=== PATIENT | male | born 1955 | race Caucasian/White ===

== ENCOUNTER → 2018-11-27 | Outpatient (CLI) | payer MEDICARE, OTHER ==
--- NOTE | 2018-11-28 08:38 | US ---
EXAMINATION TYPE: US prostate transrectal DATE OF EXAM: 11/27/2018 COMPARISON: NONE CLINICAL HISTORY: R97.2 Elevated PSA levels. This examination was performed using the transrectal probe. EXAM MEASUREMENTS: Gland Size: 4.7 X 2.8 X 4.6 Volume: 31.24 Predicted PSA: 3.75 Actual PSA (if available):5.5 No suspicious sonographic abnormality visualized . Prostate gland is minimally enlarged and mildly he terogenous. IMPRESSION: Mildly enlarged and heterogenous prostate gland without suspicious focal nodule seen son ographically. Predicted PSA = volume x 0.12 ng/ml Calculated Volume = 0.5236 x L x W x H
== END | disposition home or self-care (01) ==
LOC: RADUSWWP 08:04
PROVIDERS: ATTEND Family Medicine
DX: N40.0 Benign prostatic hyperplasia without lower urinary tract symptoms (principal)
CPT/HCPCS: 76872

== ENCOUNTER 2019-05-12 07:31 | Day surgery (SDC) | payer MEDICARE, OTHER ==
[2019-05-08 16:03] VITALS: BMI 23.6
[~2019-05-12 07:31] MED LIST: LACTATED RINGERS 1,000 ML IV SCH; LIDOCAINE 1% 20 ML VIAL (10MG/ML) FOR IV START INTRADERMA PRN
[2019-05-12 07:58] VITALS: TEMP 98.2
[2019-05-12] MEDS ORDERED: LIDOCAINE 1% INJ 10MG/ML (20 ML MDV) ONE (08:10)
[2019-05-12] MEDS ORDERED: PROPOFOL 10 MG/ML 20 ML VIAL IV ONE (08:10)
--- NOTE | 2019-05-12 08:38 | P.PCN ---
Date of Procedure: 05/12/19 Description of Procedure: BRIEF HISTORY: Patient is a 63-year-old pleasant male scheduled for an elective colonoscopy as a part of screening for malignant neoplasm colon. Last colonoscopy at the age of 52. Denies any change in bowel habits, abdominal pain, blood per rectum or family history of colon cancer. PROCEDURE PERFORMED: Colonoscopy with polypectomy. PREOPERATIVE DIAGNOSIS: And screening for malignant neoplasm of the colon, last colonoscopy approximately 10 years ago. ESTIMATED BLOOD LOSS: Minimal. IV sedation per Anesthesia. PROCEDURE: After informed consent was obtained, the patient, was brought into the endoscopy unit. IV sedation was administered by Anesthesia under continuous monitoring. Digital rectal examination was normal. Initially the Olympus CF-190 flexible video colonoscope was then inserted in the rectum, gradually advanced into the cecum without any difficulty. Careful examination was performed as the scope was gradually being withdrawn. Ileocecal valve and the appendiceal orifice were visualized and appeared normal. Prep was excellent. Mucosa of the cecum, ascending colon, transverse colon, descending colon, sigmoid colon, and rectum appeared normal. Diminutive 1 mm polyp in the ascending colon removed by cold forceps, may represent normal tissue. One diminutive 2 mm hepatic flexure polyp removed with cold forcep polypectomy. One diminutive 3 mm transverse colon polyp removed cold forcep polypectomy. A few scattered small diverticula noted in the sigmoid colon. Retroflexion was performed in the rectum and no lesions were seen. The patient tolerated the procedure well. IMPRESSION: 3 diminutive colon polyps removed with cold forcep polypectomy. Mild sigmoid diverticulosis. RECOMMENDATIONS: Findings of this examination were discussed with the patient and his . Okay to resume diet. Okay to resume medications. Await pathology from polypectomies. Anticipate repeat colonoscopy in 5 years for personal history of colon polyps pending pathology from polypectomies.
[2019-05-12 08:40] VITALS: RESP 16
[2019-05-12 08:55] VITALS: BP 137/75; PULSE 62
== END 2019-05-12 09:24 | disposition home or self-care (01) ==
LOC: ORWHC2ENDO 07:31
PROVIDERS: ATTEND Internal Medicine
DX: Z12.11 Encounter for screening for malignant neoplasm of colon (principal); D12.3 Benign neoplasm of transverse colon; K57.30 Diverticulosis of large intestine without perforation or abscess without bleeding; Z87.891 Personal history of nicotine dependence; Z96.21 Cochlear implant status; R19.7 Diarrhea, unspecified; Z79.899 Other long term (current) drug therapy; Z88.8 Allergy status to other drugs, medicaments and biological substances
CPT/HCPCS: 88305; 45380; J2001; J2704

== ENCOUNTER → 2020-11-17 | Outpatient (CLI) | payer MEDICARE, OTHER | END | disposition home or self-care (01) | LOC: LABWHC1 11:08 | PROVIDERS: ATTEND Urology | DX: R97.20 Elevated prostate specific antigen [PSA] (principal) | CPT/HCPCS: 36415; 84153 ==

== ENCOUNTER → 2021-03-28 | Outpatient (CLI) | payer MEDICARE, OTHER | END | disposition home or self-care (01) | LOC: LABPAT 14:05 | PROVIDERS: ATTEND Orthopaedic Surgery | DX: Z01.812 Encounter for preprocedural laboratory examination (principal) | CPT/HCPCS: 87070 ==

== ENCOUNTER → 2021-04-01 | Outpatient (CLI) | payer MEDICARE, OTHER | END | disposition home or self-care (01) | LOC: LABPAT 14:33 | PROVIDERS: ATTEND Orthopaedic Surgery | DX: Z01.812 Encounter for preprocedural laboratory examination (principal); M17.12 Unilateral primary osteoarthritis, left knee; Z22.322 Carrier or suspected carrier of Methicillin resistant Staphylococcus aureus | CPT/HCPCS: 86850; 86900; 86901 ==

== ENCOUNTER 2021-04-05 11:31 | Day surgery (SDC) | payer MEDICARE, OTHER ==
[2021-04-01 11:23] VITALS: BMI 25.4
--- NOTE | 2021-04-04 11:15 | HP ---
HISTORY AND PHYSICAL CHIEF COMPLAINT: Left hip pain. HISTORY OF PRESENT ILLNESS: The patient is a 65-year-old retired male who presents with progressive left hip pain for the past 20 years. He notes groin and thigh pain, worse with weightbearing activities. He has been limping. He notes night symptoms as well. He has been taking anti-inflammatories, without much relief. He notes it significantly limits his function and activities. PAST MEDICAL HISTORY: Significant for hypercholesterolemia, hypertension and diffuse idiopathic skeletal hyperostosis. PAST SURGICAL HISTORY: Negative. CURRENT MEDICATIONS: Amlodipine, Celebrex, Nexium, pravastatin, tizanidine. ALLERGIES: HE DENIES DRUG ALLERGIES. FAMILY HISTORY: Significant for cancer. SOCIAL HISTORY: Significant social alcohol use. REVIEW OF SYSTEMS: Sixteen-point review of systems is otherwise reviewed and is noncontributory. PHYSICAL EXAMINATION: On examination, the patient is approximately 5 feet 10 inches, 180 pounds of mesomorphic habitus. HEENT exam is nonfocal. Neck is supple. Passive motion of the left hip: Flexion 70 degrees, external rotation with hip flexed 60 degrees, internal rotation 20 degrees with pain. Clinically he has shortening of the left lower extremity compared to the right. He has a mildly antalgic gait pattern. His distal neurovascular exam appears intact in the left lower extremity. AP of the pelvis obtained in the office shows severe left hip osteoarthrosis with bone- on-bone changes. IMPRESSION: 1. Left hip severe osteoarthrosis. 2. History of diffuse idiopathic skeletal hyperostosis. RECOMMENDATIONS: I talked to the patient at length regarding his condition and treatment options. At this point he is quite symptomatic and limited because of pain related to his osteoarthrosis despite previous conservative measures. After thorough discussion, he opted to proceed with surgery. We will plan to proceed with left total hip arthroplasty utilizing a lateral approach. We will institute DVT prophylaxis postoperatively. MMODL / IJN: [id number] /
[~2021-04-05 11:31] MED LIST changes: +ACETAMINOPHEN TAB 500 MG TAB PO PRN; +DEXAMETHASONE SOD PHOSPHATE 4 MG/ML 1 ML VIAL IV ONE; +HYDROmorphone 0.5 MG/0.5 ML SYRINGE IVP PRN; -LACTATED RINGERS 1,000 ML IV SCH; -LIDOCAINE 1% 20 ML VIAL (10MG/ML) FOR IV START INTRADERMA PRN; +MELOXICAM 7.5 MG TAB PO PRN; +ONDANSETRON 4 MG/2 ML VIAL IVP ONE; +TRANEXAMIC ACID 1,000 MG in SODIUM CHLORIDE 0.9% 100 ML IVPB PRN
[2021-04-05] MEDS: LACTATED RINGERS 1,000 ML IV SCH ×2 (12:21→17:20)
[2021-04-05] MEDS ORDERED: ACETAMINOPHEN TAB 500 MG TAB ONE (12:25)
[2021-04-05] MEDS ORDERED: PHENYLEPHRINE-0.9% NACL SYG 1,000 MCG/10 ML SYRINGE ONE (12:47)
[2021-04-05] MEDS ORDERED: PROPOFOL 10 MG/ML 20 ML VIAL IV ONE (12:47)
[2021-04-05] MEDS ORDERED: SODIUM CHLORIDE 0.9% 100 ML BAG ONE (12:47)
[2021-04-05] MEDS ORDERED: MIDAZOLAM 2 MG/2 ML VIAL ONE (12:47)
[2021-04-05] MEDS ORDERED: fentaNYL (PF) 50 MCG/ML 2 ML AMP ONE (12:47)
[2021-04-05] MEDS ORDERED: GLYCOPYRROLATE 0.2 MG/ML 2 ML VIAL ONE (12:47)
[2021-04-05] MEDS ORDERED: ePHEDrine 50 MG/ML 1 ML AMP ONE (12:47)
[2021-04-05] MEDS ORDERED: TRANEXAMIC ACID 1,000 MG/10 ML VIAL ONE (12:47)
[2021-04-05] MEDS ORDERED: ceFAZolin 1,000 MG in SODIUM CHLORIDE 0.9% 1,000 ML IRRIGATION ONE (13:28)
[2021-04-05] MEDS ORDERED: LACTATED RINGERS 1,000 ML IV ONE ×2 (13:33→15:59)
[2021-04-05] MEDS ORDERED: NALOXONE 0.4 MG/ML 1 ML VIAL IV PRN (14:46)
[2021-04-05] MEDS ORDERED: HYDROmorphone 0.5 MG/0.5 ML SYRINGE IVP PRN (14:46)
[2021-04-05] MEDS ORDERED: HYDROcodone/APAP 5-325MG 1 EACH TAB PO PRN (14:46)
--- NOTE | 2021-04-05 14:59 | P.OP ---
Date of Procedure: 04/05/21 Preoperative Diagnosis: Severe left hip osteoarthrosis Postoperative Diagnosis: Same Procedure(s) Performed: Left total hip arthroplastylateral approach Implants: Depuy Corail 36+1.5 cobalt chrome femoral head, 58 mm Hartley acetabular shell with neutral polyethylene liner. Anesthesia: spinal Surgeon: Juan Garber Medical Claims Processor #1: Neftaly Christiansen Estimated Blood Loss (ml): 200 Pathology: other (Femoral head) Condition: stable Disposition: PACU Indications for Procedure: 55-year-old male presents with progressive left hip pain secondary to osteoarthrosis despite conservative measures. A discussion of the risks and benefits of operative intervention versus continued conservative measures was made with patient. He opted proceed with surgery. Operative risks to include infection, neurovascular injury, development of blood clots, leg length discrepancy, instability, fracture, possible component loosening/failure and need for subsequent procedures was discussed. Informed consent was obtained. Operative Findings: As below Description of Procedure: The patient was brought to the operating room, and after induction of spinal anesthesia was placed in a lateral decubitus position. The bony prominences were appropriately padded. The pelvis was stable perpendicular to the floor with a pegboard. The left lower extremity was prepped and draped in normal fashion. A 12 cm incision was then made centered over the greater trochanter extending superiorly to level the ASIS and distally in line with the femoral shaft. The skin and subcutaneous tissues were divided sharply. Electrocautery was used for hemostasis. The fascia mojgan and gluteus miesha fascia was split in line with the skin incision. The muscle fibers were bluntly dissected proximally. A self-retaining retractor was placed. The anterior and posterior margins of the gluteus medius muscles identified and the anterior two thirds was detached from the greater trochanter with electrocautery. The gluteus minimus tendon was identified and detached in a similar fashion. A wide capsulotomy was performed. The femoral neck fracture was identified in the lower neck cut was made approximately 1 1/2 cm above the level of the lesser trochanter with a sagittal saw at a 45 the shaft. The head was then extracted with a corkscrew. Attention was then paid towards preparing the acetabular. Anterior and posterior retractors were placed. The remaining capsular labral tissues debrided sharply clearly defining the acetabular margins. Began reaming with a 49 mm reamer taking care to initially medialize, then reaming at 45 of abduction and 20 of anteversion. Sequential reaming is performed up to 57 mm. This was down to bleeding bony surface. A trial 58 mm acetabular shell was inserted at 45 of abduction and 20 of anteversion. This was fully seated. There was good rim fit and stability. A neutral polyethylene liner was then impacted. Care taken to avoid any soft tissue interposition. Attention was then paid towards preparing the proximal femur. A box chisel was used to open the metaphyseal region. A canal finder was used to find the femoral canal. Sequential broaching was performed up to a size 13. This is placed in 15 of anteversion with the leg perpendicular floor judging off the trans-epicondylar axis. There is good rotational stability. A calcar mill was used to fashion the medial calcar. A trial standard neck along with a 36 mm + 1.5 trial head was placed. The hip was gently reduced. It was taken through range of motion. I felt to be stable in flexion and extension with internal and external rotation. I felt there was adequate evangelical of soft tissue tension. The hip was gently dislocated. The trial components removed. Pulsatile lavage was utilized. The final size 13 standard collared femoral stem was inserted again with the leg perpendicular to the floor in 15 of anteversion. Again there was good rotational stability. A 36 mm + 1.5 cobalt chrome femoral head was gently impacted. The hip was gently reduced. Again it was taken through motion and felt to be stable in flexion and extension with internal and external rotation. Pulsatile lavage was again utilized. With the leg in abduction the gluteus minimus and medius tendons reattached to the greater trochanter with #2 Ethibond suture. There was minimal drainage therefore a deep drain was not placed. The fascia mojgan and gluteus miesha fascia was closed with #2 Ethibond suture. The subcutaneous tissues were reapproximated interrupted 2-0 Vicryl sutures. The s kin was reapproximated with 3-0 subcuticular strata fix suture. Skin tape and adhesive was applied. A sterile dressing was applied. The patient was awoken from sedation and transferred to recovery room in good condition. Blood loss was estimated 200 mL. No complications were incurred. Sponge and needle counts were correct in the case. Neftaly JJ assisted during the major composes case to include exposure, implantation, and closure.
[2021-04-05] MEDS ORDERED: KETOROLAC 15 MG/ML 1 ML VIAL ONE (15:17)
[2021-04-05] MEDS ORDERED: KETOROLAC 15 MG/ML 1 ML VIAL IVP ONE (15:20)
--- NOTE | 2021-04-05 15:28 | XR ---
Limited left hip HISTORY: Status post left hip arthroplasty Single frontal view of the left hip Patient is status post left hip arthroplasty. There is anatomic alignment. Lucency is present within the soft tissues. IMPRESSION: Orthopedic follow-up.
[2021-04-05 17:10] VITALS: RESP 18
[2021-04-05] MEDS: HYDROcodone/APAP 7.5-325MG 1 EACH TAB PO PRN ×2 (17:18→21:44)
[2021-04-05] MEDS ORDERED: SENNOSIDES-DOCUSATE SODIUM 1 EACH TAB PO SCH (21:00)
[2021-04-06] MEDS: HYDROcodone/APAP 7.5-325MG 1 EACH TAB PO PRN ×2 (04:55→10:21)
[2021-04-06 06:51] LABS: Glucose,Whole Blood 143 mg/dL (75-99)
[2021-04-06 08:07] VITALS: BP 125/74; PULSE 73; TEMP 98.4
[2021-04-06] MEDS ORDERED: ENOXAPARIN 40 MG/0.4 ML SYRINGE SQ SCH (09:00)
[2021-04-06 09:41] LABS: Basophils # (A) 0.02 X 10*3/uL (0.00-0.10); Basophils % (A) 0.2 %; Eosinophils # (A) 0 X 10*3/uL (0.04-0.35); Eosinophils % (A) 0 %; HCT 35.5 % (39.6-50.0); HGB 11.6 g/dL (13.0-17.0); Lymphocytes # (A) 1.24 X 10*3/uL (0.90-5.00); MCHC 32.7 g/dL (32.0-37.0); MCV 88.8 fL (80.0-97.0); Mean Platelet Volume 10.5 fL (9.5-12.2); Monocytes # (A) 1.13 X 10*3/uL (0.20-1.00); Neutrophils # (A) 8.85 X 10*3/uL (1.80-7.70); Neutrophils % (A) 78.4 %; Platelet Count 224 X 10*3/uL (140-440); RDW 12.4 % (11.5-14.5); WBC 11.28 X 10*3/uL (4.50-10.00)
--- NOTE | 2021-04-06 10:32 | P.PN ---
Subjective Progress Note Date: 04/06/21 Principal diagnosis: Left hip osteoarthritis Patient was seen at bedside this morning resting comfortably sitting up in chair. Patient states physical therapy came by this morning and he got up and walked in the beltran and up-and-down a couple steps. Patient says he has not had bowel movement yet, but he says he has passed gas. Patient says most the pain that he has in his hip is located over the incision. Patient says he has used incentive spirometer as well. Patient denies chest pain, fever, shortness of breath, nausea, vomiting, change in vision, loss of bowel/bladder control. Objective - Vital Signs Vital signs: Vital Signs Temp 98.4 F 04/06/21 08:00 Pulse 73 04/06/21 08:00 Resp 18 04/06/21 08:00 BP 125/74 04/06/21 08:00 Pulse Ox 95 04/06/21 08:00 Intake & Output 04/05/21 04/06/21 04/06/21 18:59 06:59 18:59 Intake Total 2050 Output Total 200 2069 Balance 1850 -2069 Weight 82 kg Intake: IV 2050 Output: Urine 2069 Estimated Blood Loss 200 Other: Voiding Method Urinal # Voids 1 4 # Bowel Movements 0 - Exam Left hip: Incision is clean, dry, and intact. The mesh tape is in good condition. There is minimal soft tissue swelling and ecchymosis surrounding the medial and lateral aspects of the incision. Calf is soft, no tenderness with palpation. Plantar flexion, dorsiflexion, EHL, FHL are intact. Sensory exam to light touch throughout the extremity is intact, dorsal pedis pulses 2+. - Labs CBC & Chem 7: 04/06/21 05:57 Labs: Abnormal Lab Results - Last 24 Hours (Table) 04/06/21 04/06/21 Range/Units 05:57 06:50 WBC 11.28 H (4.50-10.00) X 10*3/uL RBC 4.00 L (4.40-5.60) X 10*6/uL Hgb 11.6 L (13.0-17.0) g/dL Hct 35.5 L (39.6-50.0) % Neutrophils # 8.85 H (1.80-7.70) X 10*3/uL Monocytes # 1.13 H (0.20-1.00) X 10*3/uL Eosinophils # 0 L (0.04-0.35) X 10*3/uL POC Glucose (mg/dL) 143 H (75-99) mg/dL Assessment and Plan Assessment: Postoperative day 1 status post left total hip arthroplasty Plan: 1. Left hip osteoarthritis - left total hip arthroplasty performed yesterday, 04/05/2021. Patient stable at bedside this morning. Plan discharge home today with health services 2. Appreciate medical management 3. Pain management - going home with [place] 7.5 mg/325 mg 4. DVT prophylaxis - Lovenox in hospital. Going home with Eliquis 2.5 mg twice a day 2 weeks 5. GI prophylaxis - going home with Colace 100 mg 6. PT/OT - weightbearing as tolerated with walker for assistance 7. Encourage incentive spirometer use 8. Discharge planning - plan discharge home today with health services Time with Patient: Less than 30
--- NOTE | 2021-04-06 10:32 | P.DS ---
Providers Date of admission: 04/05/2021 Expected date of discharge: 04/06/21 Attending physician: Juan Garber Consults: 04/05/21 14:49 Consult Physician Routine Consulting Provider: Moe Tong Consult Reason/Comments: Medical Management s/p left total hip arthroplasty Do you want consulting provider notified?: Yes Primary care physician: Nabila Burrows Hospital Course: Date of admission: 04/05/2021 Date of discharge: 04/06/2021 Admission diagnosis: Left hip osteoarthritis Discharge diagnosis: Same Attending physician: Dr. Garber Surgical procedures: Left total hip arthroplasty Brief history: Patient is a 65-year-old male with a history of progressive primary left hip osteoarthritis. At this point patient has failed conservative treatment measures and has opted to proceed with a elective left total hip arthroplasty. Hospital course: Details of patient's surgery can be found in operative report. Patient tolerated the procedure well and was subsequently transported to orthopedic floor. Patient's orthopeidc and medical care was provided daily. Patient had daily laboratory tests performed for evaluation of overall blood counts. Patient had daily physical therapy to include strengthening range of motion as well as education with walker ambulation. Patient was treated with Lovenox for their postoperative DVT prophylaxis during their inpatient stay. Patient was noted to have a relatively uneventful postoperative course. Patient reported satisfactory pain control with oral pain medications by postoperative day 1. Patient showed satisfactory progress with physical therapy. Patient moved steadily through the program and had no difficulty meeting the goals by postoperative day 1. Given patient's otherwise satisfactory course and having met physical therapy goals, plan is to discharge patient home on postoperative day 1. Discharge condition/disposition: Patient will be discharged home in stable condition. Discharge medications: Instructions are given on resumption of patient's normal daily medications per primary care recommendation, in addition patient will be prescribed [place] 7.5 mg/325 mg, Colace 100 mg; Eliquis 2.5 mg BID x 2 weeks. Discharge instructions: 1. Wound care and infection precautions, keep incision dry and covered while showering, no lotions, creams, moisturizers. No soaking, tubs, pools, hottubs. Do not scrub over the incision. 2. Weight-bear as tolerated with walker / cane until follow-up. 3. Ice and elevate when necessary. Do not exceed 20 minutes per hour with ice pack. 4. Utilize compression sleeve until seen at first follow up appointment. 5. Visiting nursing care. 6. Home physical therapy. 7. Pain meds and anticoagulants per prescription. 8. Pain medication has potential to cause constipation. Increase oral fluid and fiber intake. Contact primary care provider if you have not had a bowel movement within 48 hours after discharge 9. No anti-inflammatory medication until discussed at first post operative visit, this including Motrin, Aleve, Mobic, Diclofenac. 10. Follow up in office at 2 weeks postop with Arvin Torrez PA-C / Neftaly Christiansen PA-C 11. Follow up with your primary care doctor 7-10 days after discharge. 12. Contact [facility] with any questions, . Keep mesh tape on until follow-up appointment in 2 weeks. While showering, cover mesh tape with Saran wrap Assessment: Left hip osteoarthritis Procedures: Left total hip arthroplasty Patient Condition at Discharge: Good Plan - Discharge Summary Discharge Rx Participant: Yes New Discharge Prescriptions: New HYDROcodone/APAP 7.5-325MG [[place] 7.5] 1 each PO Q6HR PRN #28 tab PRN Reason: Pain Docusate [Colace] 100 mg PO DAILY #30 capsule Apixaban [Eliquis] 2.5 mg PO BID #60 tab No Action amLODIPine BESYLATE/BENAZEPRIL [amLODIPine BESYLATE/BENAZEPRIL 10-20 MG] 1 cap PO DAILY Esomeprazole Magnesium [NexIUM] 40 mg PO DAILY PRN PRN Reason: GERD tiZANidine [Zanaflex] 4 mg PO BID PRN PRN Reason: Pain Celecoxib [CeleBREX] 200 mg PO BID Rosuvastatin [Crestor] 20 mg PO HS Discharge Medication List Celecoxib [CeleBREX] 200 mg PO BID 05/08/19 [History] Esomeprazole Magnesium [NexIUM] 40 mg PO DAILY PRN 05/08/19 [History] amLODIPine BESYLATE/BENAZEPRIL [amLODIPine BESYLATE/BENAZEPRIL 10-20 MG] 1 cap PO DAILY 05/08/19 [History] tiZANidine [Zanaflex] 4 mg PO BID PRN 05/08/19 [History] Rosuvastatin [Crestor] 20 mg PO HS 04/01/21 [History] Apixaban [Eliquis] 2.5 mg PO BID #60 tab 04/06/21 [Rx] Docusate [Colace] 100 mg PO DAILY #30 capsule 04/06/21 [Rx] HYDROcodone/APAP 7.5-325MG [[place] 7.5] 1 each PO Q6HR PRN #28 tab 04/06/21 [Rx] Follow up Appointment(s)/Referral(s): [facility], [NON-STAFF] - ([facility] will call you to schedule your home care visits. ) Nabila Burrows MD [Primary Care Provider] - 1 Week Neftaly Christiansen PAC [PHYSICIAN COMPUTER NUMERICAL CONTROL PROGRAMMER] - 04/21/21 2:10 pm Patient Instructions/Handouts: Total Hip Replacement (GEN) Activity/Diet/Wound Care/Special Instructions: Discharge instructions: 1. Wound care and infection precautions, keep incision dry and covered while showering, no lotions, creams, moisturizers. No soaking, tubs, pools, hottubs. Do not scrub over the incision. 2. Weight-bear as tolerated with walker / cane until follow-up. 3. Ice and elevate when necessary. Do not exceed 20 minutes per hour with ice pack. 4. Utilize compression sleeve until seen at first follow up appointment. 5. Visiting nursing care. 6. Home physical therapy. 7. Pain meds and anticoagulants per prescription. 8. Pain medication has potential to cause constipation. Increase oral fluid and fiber intake. Contact primary care provider if you have not had a bowel movement within 48 hours after discharge 9. No anti-inflammatory medication until discussed at first post operative visit, this including Motrin, Aleve, Mobic, Diclofenac. 10. Follow up in office at 2 weeks postop with Arvin Torrez PA-C / Neftaly Christiansen PA-C 11. Follow up with your primary care doctor 7-10 days after discharge. 12. Contact [facility] with any questions, . Keep mesh tape on until follow-up appointment in 2 weeks. While showering, cover mesh tape with Saran wrap Discharge Disposition: HOME WITH HOME HEALTH SERVICES
[2021-04-06] MEDS ORDERED: PANTOPRAZOLE 40 MG TABLET PO PRN (11:37)
--- NOTE | 2021-04-06 11:39 | P.CONS ---
History of Present Illness - Reason for Consult Consult date: 04/06/21 medical Management Requesting physician: Juan Garber - Chief Complaint OA of the left hip - History of Present Illness This 65-year-old male patient of Dr. Burrows who presented for an elective left hip arthroplasty with Dr. Tolentino. Patient has past medical history of GERD, hyperlipidemia, hypertension, prostate disorder and thickening of ligaments and tendons. Patient is a postoperative day 1. Patient reports some discomfort around surgical site. Patient denies any chest pain or shortness breath. Patient denies nausea vomiting or diarrhea. Patient denies any urinary burning or frequency. Patient planning to be DC'd home today per orthopedic services with home healthcare Review of Systems Please refer to HPI otherwise unremarkable Past Medical History Past Medical History: GERD/Reflux, Hyperlipidemia, Hypertension, Musculoskeletal Disorder, Prostate Disorder Additional Past Medical History / Comment(s): Elev PSA, being watched. Forestier's disease (thickening of ligaments, tendons, joints) History of Any Multi-Drug Resistant Organisms: None Reported Past Surgical History: Ear Surgery Additional Past Surgical History / Comment(s): Colonoscopy. Rt ear cochlear implant Past Anesthesia/Blood Transfusion Reactions: No Reported Reaction Past Psychological History: No Psychological Hx Reported Smoking Status: Never smoker Past Alcohol Use History: Occasional Past Drug Use History: None Reported - Past Family History Sister(s) Family Medical History: Cancer Medications and Allergies Home Medications Medication Instructions Recorded Confirmed Type Celecoxib [CeleBREX] 200 mg PO BID 05/08/19 04/05/21 History Esomeprazole Magnesium [NexIUM] 40 mg PO DAILY PRN 05/08/19 04/05/21 History amLODIPine BESYLATE/BENAZEPRIL 1 cap PO DAILY 05/08/19 04/05/21 History [amLODIPine BESYLATE/BENAZEPRIL 10-20 MG] tiZANidine [Zanaflex] 4 mg PO BID PRN 05/08/19 04/05/21 History Rosuvastatin [Crestor] 20 mg PO HS 04/01/21 04/05/21 History Apixaban [Eliquis] 2.5 mg PO BID #60 tab 04/06/21 Rx Docusate [Colace] 100 mg PO DAILY #30 capsule 04/06/21 Rx HYDROcodone/APAP 7.5-325MG [[place] 1 each PO Q6HR PRN #28 tab 04/06/21 Rx 7.5] Allergies Allergy/AdvReac Type Severity Reaction Status Date / Time No Known Allergies Allergy Verified 04/05/21 12:23 Physical Exam Vitals: Vital Signs Temp Pulse Pulse Pulse Resp BP BP 04/06/21 08:00 98.4 F 73 18 125/74 04/06/21 01:54 97.9 F 78 120/68 04/05/21 20:09 86 18 04/05/21 19:34 97.6 F 86 124/73 04/05/21 19:21 97.6 F 88 124/73 04/05/21 19:05 87 150/89 04/05/21 18:36 98 139/85 04/05/21 18:06 100 147/87 04/05/21 17:50 67 132/87 04/05/21 17:35 95 154/91 04/05/21 17:21 97 147/86 04/05/21 17:09 97.8 F 92 18 153/84 04/05/21 17:06 90 153/84 04/05/21 15:50 77 16 143/81 04/05/21 15:35 74 16 139/79 04/05/21 15:20 72 16 146/74 04/05/21 15:05 75 16 135/78 04/05/21 14:53 96.9 F L 80 18 130/70 04/05/21 12:19 97.9 F 89 16 125/64 Pulse Ox 04/06/21 08:00 95 04/06/21 01:54 95 04/05/21 20:09 04/05/21 19:34 96 04/05/21 19:21 96 04/05/21 19:05 94 L 04/05/21 18:36 99 04/05/21 18:06 97 04/05/21 17:50 97 04/05/21 17:35 97 04/05/21 17:21 98 04/05/21 17:09 98 04/05/21 17:06 99 04/05/21 15:50 100 04/05/21 15:35 100 04/05/21 15:20 100 04/05/21 15:05 97 04/05/21 14:53 98 04/05/21 12:19 98 Intake and Output 04/05/21 04/06/21 04/06/21 22:59 06:59 14:59 Intake Total 100 Output Total 820 1250 Balance -720 -1250 Intake: IV 100 Output: Urine 820 1250 Other: Voiding Method Urinal # Voids 1 4 # Bowel Movements 0 Weight 82 kg Head normocephalic Neck supple Lungs clear to auscultation bilaterally no wheezing or crackles Heart regular rate and rhythm S1-S2, no rub or gallop Abdomen is soft nontender nondistended positive bowel sounds no hepatosplenom egaly Extremities no edema. Left hip dressings clean dry and intact Neuro alert and orientated to 3 Results CBC & Chem 7: 04/06/21 05:57 Labs: Abnormal Lab Results - Last 24 Hours (Table) 04/06/21 04/06/21 Range/Units 05:57 06:50 WBC 11.28 H (4.50-10.00) X 10*3/uL RBC 4.00 L (4.40-5.60) X 10*6/uL Hgb 11.6 L (13.0-17.0) g/dL Hct 35.5 L (39.6-50.0) % Neutrophils # 8.85 H (1.80-7.70) X 10*3/uL Monocytes # 1.13 H (0.20-1.00) X 10*3/uL Eosinophils # 0 L (0.04-0.35) X 10*3/uL POC Glucose (mg/dL) 143 H (75-99) mg/dL Assessment and Plan Assessment: 1. status post left hip arthroplasty on 04/05/2021 2. History of hyperlipidemia. Maintained on statin 3. History of essential hypertension 4. History of GERD 5. History of forestier's diseae. Thank you for this consultation we will continue follow patient closely thr oughout stay Time with Patient: Greater than 30 (Greater than 60% of the total time spent in counseling and coordination of care)
[2021-04-06] MEDS ORDERED: ATORVASTATIN 40 MG TAB PO SCH (21:00)
[2021-04-07] MEDS ORDERED: NON FORMULARY DRUG (Amlodipine Besylate/Benazepril [Amlodipine Besylate/Benazepril 10-20 M PO SCH (09:00)
[2021-04-07] MEDS ORDERED: amLODIPine 10 MG TAB PO SCH (09:00)
[2021-04-07] MEDS ORDERED: lisinopriL 20 MG TAB PO SCH (09:00)
== END 2021-04-06 13:22 | disposition home health service (06) ==
LOC: OR 11:31 → 4SSUR 14:53 → OR 04-06 13:22
PROVIDERS: ATTEND Orthopaedic Surgery
DX: M16.12 Unilateral primary osteoarthritis, left hip (principal); E78.00 Pure hypercholesterolemia, unspecified; I10 Essential (primary) hypertension; M48.10 Ankylosing hyperostosis [Forestier], site unspecified; E78.5 Hyperlipidemia, unspecified; R97.20 Elevated prostate specific antigen [PSA]; M35.3 Polymyalgia rheumatica; K21.9 Gastro-esophageal reflux disease without esophagitis; Z20.822 Contact with and (suspected) exposure to COVID-19; Z80.9 Family history of malignant neoplasm, unspecified; Z98.890 Other specified postprocedural states; Z96.21 Cochlear implant status; Z79.1 Long term (current) use of non-steroidal anti-inflammatories (NSAID); Z79.899 Other long term (current) drug therapy
CPT/HCPCS: 97161; 97535; 97165; 85025; 88300; 87635; 73501; 27130; C1776; J2250; J1100; J0690 ×3; J2405; J1650; J3010; J1885; J2370; J2704; J1170; 36415; 86850; 86900; 86901

== ENCOUNTER → 2021-08-09 | Outpatient (CLI) | payer MEDICARE, OTHER | END | disposition home or self-care (01) | LOC: LABWHC1 12:08 | PROVIDERS: ATTEND Urology | DX: R97.20 Elevated prostate specific antigen [PSA] (principal) | CPT/HCPCS: 36415; 84153; 84154 ==

== ENCOUNTER → 2022-03-23 | Outpatient (CLI) | payer MEDICARE, OTHER | END | disposition home or self-care (01) | LOC: LABWHC1 10:37 | PROVIDERS: ATTEND Urology | DX: R97.20 Elevated prostate specific antigen [PSA] (principal) | CPT/HCPCS: 36415; 84153 ==

== ENCOUNTER → 2022-05-02 | Outpatient (CLI) | payer MEDICARE, OTHER | END | disposition home or self-care (01) | LOC: LABPAT 08:34 | PROVIDERS: ATTEND Orthopaedic Surgery | DX: Z01.812 Encounter for preprocedural laboratory examination (principal); Z22.322 Carrier or suspected carrier of Methicillin resistant Staphylococcus aureus; I10 Essential (primary) hypertension; M16.11 Unilateral primary osteoarthritis, right hip | CPT/HCPCS: 87070; 93005 ==

== ENCOUNTER 2022-05-09 06:00 | Observation (INO) | payer MEDICARE, OTHER ==
[2022-05-04 16:04] VITALS: BMI 27.2
--- NOTE | 2022-05-08 08:52 | P.HPOR ---
History of Present Illness H&P Date: 05/08/22 Chief Complaint: Right hip pain The patient is a 65-year-old retired male who presents with progressive right hip pain for the past several years worsening recently. He is having pain with weightbearing activities. Been limping. He also has night symptoms. He's tried medications without much relief. He underwent left total hip arthroplasty last year with good resolution of his symptoms. Review of Systems As per HPI Past Medical History Past Medical History: GERD/Reflux, Hearing Disorder / Deafness, Hyperlipidemia, Hypertension, Musculoskeletal Disorder, Prostate Disorder Additional Past Medical History / Comment(s): Elev PSA, being watched. Forestier's disease (thickening of ligaments, tendons, joints)., sees chiropractor., cochlear implant right ear, deaf left ear., hearing aid. History of Any Multi-Drug Resistant Organisms: None Reported Past Surgical History: Ear Surgery, Joint Replacement Additional Past Surgical History / Comment(s): Colonoscopy. Rt ear cochlear implant, total left hip. Past Anesthesia/Blood Transfusion Reactions: No Reported Reaction Past Psychological History: No Psychological Hx Reported Smoking Status: Never smoker Past Alcohol Use History: Occasional Past Drug Use History: None Reported - Past Family History Sister(s) Family Medical History: Cancer Medications and Allergies Home Medications Medication Instructions Recorded Confirmed Type Celecoxib [CeleBREX] 200 mg PO BID 05/08/19 05/04/22 History Esomeprazole Magnesium [NexIUM] 40 mg PO DAILY 05/08/19 05/04/22 History amLODIPine BESYLATE/BENAZEPRIL 1 cap PO DAILY 05/08/19 05/04/22 History [amLODIPine BESYLATE/BENAZEPRIL 10-20 MG] tiZANidine [Zanaflex] 4 mg PO HS PRN 05/08/19 05/04/22 History Rosuvastatin [Crestor] 20 mg PO HS 04/01/21 05/04/22 History Acetaminophen [Tylenol Arthritis] 650 mg PO DIRECTED PRN 05/04/22 05/04/22 History Cholecalciferol [Vitamin D3 (25 100 mcg PO DAILY 05/04/22 05/04/22 History Mcg = 1000 Iu)] Multicollagen 1 dose PO DAILY 05/04/22 History Vitamin B Complex 1 each PO DAILY 05/04/22 05/04/22 History metHOTREXate sodium [Methotrexate] 15 mg PO Q7D 05/04/22 05/04/22 History Allergies Allergy/AdvReac Type Severity Reaction Status Date / Time No Known Allergies Allergy Verified 05/04/22 15:38 Physical Examination - Hip right Tenderness with palpation: anterior Pain with motion: internal rotation and hip flexion ROM: flexion: 80 degrees ROM: internal rotation: 0 degrees (With pain) ROM: external rotation: 60 degrees Strength: flexion: 5/5 Strength: abduction: 5/5 Tests: impingement tests: positive Results The patient is a well-developed well-nourished male proximal 5 foot 10, 190 pounds of mesomorphic habits. HEENT exam is nonfocal, neck supple. He is nont tran about the lumbar spine. Straight leg raise is negative. His distal neurovascular appears intact in the right lower extremity. He does have an antalgic gait pattern. - Diagnostic results Hip x-ray: image reviewed (Right hip x-rays show severe right hip osteoarthrosis with [id number] changes subchondral sclerosis.) Assessment and Plan Assessment: Right hip severe osteoarthrosissymptomatic Plan: I talked with patient length regarding his condition along with treatment options. This point is quite symptomatic and limited because of pain related to his osteoarthrosis despite previous conservative measures. After thorough discussion he opted to proceed with surgery. We'll plan to proceed with right total hip arthroplasty utilizing a lateral approach. We will institute DVT prophylaxis postoperative. Risks and benefits were discussed at length in layman's terms.
[~2022-05-09 06:00] MED LIST changes: -HYDROmorphone 0.5 MG/0.5 ML SYRINGE IVP PRN; -TRANEXAMIC ACID 1,000 MG in SODIUM CHLORIDE 0.9% 100 ML IVPB PRN; +TRANEXAMIC ACID IN NACL,ISO-OS 1,000 MG in SALINE 1 100ML.BAG IVPB PRN
[2022-05-09] MEDS: LACTATED RINGERS 1,000 ML IV SCH (06:27)
[2022-05-09] MEDS ORDERED: MIDAZOLAM 2 MG/2 ML VIAL IVP ONE (07:01)
[2022-05-09] MEDS ORDERED: PROPOFOL 10 MG/ML 20 ML VIAL IV ONE (07:49)
[2022-05-09] MEDS ORDERED: SODIUM CHLORIDE 0.9% (PF) 10 ML VIAL ONE (07:49)
[2022-05-09] MEDS ORDERED: ROPIVACAINE 5 MG/ML 30 ML VIAL ONE (07:49)
[2022-05-09] MEDS ORDERED: TRANEXAMIC ACID IN NACL,ISO-OS 1,000 MG/100 ML BAG ONE (07:49)
[2022-05-09] MEDS ORDERED: fentaNYL (PF) 50 MCG/ML 2 ML AMP ONE (07:49)
[2022-05-09] MEDS ORDERED: diphenhydrAMINE 50 MG/ML 1 ML VIAL ONE (07:49)
[2022-05-09] MEDS ORDERED: ePHEDrine 50 MG/ML 1 ML VIAL ONE (07:49)
[2022-05-09] MEDS ORDERED: DEXAMETHASONE SOD PHOSPHATE 4 MG/ML 1 ML VIAL ONE (07:49)
[2022-05-09] MEDS ORDERED: PHENYLEPHRINE-0.9% NACL SYG 1,000 MCG/10 ML SYRINGE ONE (07:49)
[2022-05-09] MEDS ORDERED: MIDAZOLAM 2 MG/2 ML VIAL ONE (07:49)
[2022-05-09] MEDS ORDERED: LACTATED RINGERS 1,000 ML IV ONE (09:25)
[2022-05-09] MEDS ORDERED: HYDROmorphone 1 MG/ML 1 ML SYRINGE IVP PRN (09:32)
[2022-05-09] MEDS ORDERED: HYDROcodone/APAP 5-325MG 1 EACH TAB PO PRN (09:32)
[2022-05-09] MEDS ORDERED: NALOXONE 0.4 MG/ML 1 ML VIAL IV PRN (09:32)
--- NOTE | 2022-05-09 09:49 | P.OP ---
Date of Procedure: 05/09/22 Preoperative Diagnosis: Severe right hip osteoarthrosis Postoperative Diagnosis: Same Procedure(s) Performed: Right total hip arthroplastypress-fitlateral approach Implants: Depuy Corail size [id number] collared press-fit femoral stem, 36+1.5 cobalt chrome femoral head, 58 mm Maud acetabular shell with neutral polyethylene liner. Anesthesia: spinal Surgeon: Juan Garber Sound Person #1: Neftaly Christiansen Estimated Blood Loss (ml): 200 Pathology: other (Femoral head) Condition: stable Disposition: PACU Indications for Procedure: The patient's a 66-year-old male presents with progressive right hip pain secondary to osteoarthrosis despite conservative measures. A discussion of the risks and benefits of operative intervention versus continued conservative measures was made with the patient. He opted to proceed with surgery. Operative risks to include infection, neurovascular injury, development of blood clots, fracture, leg length discrepancy, possible instability, possible component loosening/failure and need for subsequent procedures was discussed. Informed consent was obtained. Operative Findings: As below Description of Procedure: The patient was brought to the operating room, and after induction of spinal anesthesia was placed in a lateral decubitus position. The bony prominences were appropriately padded. The pelvis was stable perpendicular to the floor with a pegboard. The right lower extremity was prepped and draped in normal fashion. A 12 cm incision was then made centered over the greater trochanter extending superiorly to level the ASIS and distally in line with the femoral shaft. The skin and subcutaneous tissues were divided sharply. Electrocautery was used for hemostasis. The fascia mojgan and gluteus miesha fascia was split i n line with the skin incision. The muscle fibers were bluntly dissected proximally. A self-retaining retractor was placed. The anterior and posterior margins of the gluteus medius muscles identified and the anterior two thirds was detached from the greater trochanter with electrocautery. The gluteus minimus tendon was identified and detached in a similar fashion. A wide capsulotomy was performed. The femoral neck fracture was identified in the lower neck cut was made approximately 1 1/2 cm above the level of the lesser trochanter with a sagittal saw at a 45 the shaft. The head was then extracted with a corkscrew. Attention was then paid towards preparing the acetabular. Anterior and posterior retractors were placed. The remaining capsular labral tissues debrided sharply clearly defining the acetabular margins. Began reaming with a 49 mm reamer taking care to initially medialize, then reaming at 45 of abduction and 20 of anteversion. Sequential reaming is performed up to 57 mm. This was down to bleeding bony surface. A trial 58 mm acetabular shell was inserted at 45 of abduction and 20 of anteversion. This was fully seated. There was good rim fit and stability. A neutral polyethylene liner was then impacted. Care taken to avoid any soft tissue interposition. Attention was then paid towards preparing the proximal femur. A box chisel was used to open the metaphyseal region. A canal finder was used to find the femoral canal. Sequential broaching was performed up to a size 12. This is placed in 15 of anteversion with the leg perpendicular floor judging off the trans-epicondylar axis. There is good rotational stability. A calcar mill was used to fashion the medial calcar. A trial 125 neck along with a 36 mm + 1.5 trial head was placed. The hip was gently reduced. It was taken through range of motion. I felt to be stable in flexion and extension with internal and external rotation. I felt there was adequate samaritan of soft tissue tension. The hip was gently dislocated. The trial components removed. Pulsatile lavage was utilized. The final size 12 125 collared femoral stem was inserted again with the leg perpendicular to the floor in 15 of anteversion. Again there was good rotational stability. A 36 mm + 1.5 cobalt chrome femoral head was gently impacted. The hip was gently reduced. Again it was taken through motion and felt to be stable in flexion and extension with internal and external rotation. Pulsatile lavage was again utilized. With the leg in abduction the gluteus minimus and medius tendons reattached to the greater trochanter with #2 Ethibond suture. There was minimal drainage therefore a deep drain was not placed. The fascia mojgan and gluteus miesha fascia was closed with #2 Ethibond suture. The subcutaneous tissues were reapproximated interrupted 2-0 Vicryl sutures. The skin was reapproximated with 3-0 subcuticular strata fix suture. Skin tape and adhesive was applied. A sterile dressing was applied. The patient was awoken from sedation and transferred to recovery room in good condition. Blood loss was estimated 200 mL. No complications were incurred. Sponge and needle counts were correct in the case. Neftaly JJ assisted during the major composes case to include exposure, implantation, and closure.
[2022-05-09] MEDS: HYDROmorphone 0.5 MG/0.5 ML SYRINGE IVP PRN ×4 (10:11→20:31)
--- NOTE | 2022-05-09 10:31 | XR ---
EXAMINATION TYPE: XR Hip Limited RT DATE OF EXAM: 05/09/2022 Comparison: 03/27/2022 Clinical History: 66-year-old male Status post hip surgery, assess surgical alignment Findings: Image shows placement of right hip total arthroplasty. Acetabular cup and femoral stem components of the prosthesis are well seated without periprosthetic fracture. Some scattered soft tissue air relate d to recent operation. Alignment grossly anatomic. Impression: Uncomplicated postoperative appearance right hip total arthroplasty.
[2022-05-09] MEDS: HYDROcodone/APAP 7.5-325MG 1 EACH TAB PO PRN (15:56)
--- NOTE | 2022-05-09 16:00 | P.CONS ---
History of Present Illness - Reason for Consult Consult date: 05/09/22 HTN Requesting physician: Juan Garber - Chief Complaint hip pain - History of Present Illness Patient is a 66-year-old male with GERD, hypertension, dyslipidemia, and poor hearing with a cochlear implant who presented for elective left total hip arthroplasty. He had no immediate postoperative complications. Patient seen and examined at bedside. He still feels as though his left leg is slightly numb and heavy. He denies any postoperative chest pain, shortness of breath, nausea, vomiting, dizziness. He denies any recent cough, cold, fever, flu. He did have his right hip done in the past. He had been taking methotrexate to help with DISH but did not feel was affected and has since stopped that medication. Pertinent positives and negatives as discussed in HPI, a complete review of systems was performed and all other systems are negative. Vital signs reviewed General: nontoxic, mild distress due to pain, appears at stated age Derm: warm, dry Head: atraumatic, normocephalic, symmetric, MINTO Eyes: EOMI, no lid lag, anicteric sclera, pupils equal round reactive to light ENT: Nose and ears atraumatic, no thrush, no pharyngeal erythema Neck: No thyromegaly, no cervical lymphadenopathy, trachea midline, supple Mouth: no lip lesion, mucus membranes moist Cardiovascular: S1S2 reg, no murmur, positive posterior tibial pulse bilateral, no edema, capillary refill less than 2 seconds Lungs: clear to auscultation bilateral, no rhonchi, no rales, no wheeze, no accessory muscle use Abdominal: soft, nontender to palpation, no guarding, no appreciable organomegaly, normal bowel sounds Ext: no gross muscle atrophy, muscle strength 5 out of 5 in upper extremities, no contractures Neuro: CN II-XII grossly intact, light touch intact all 4 extremities, finger to nose within normal limits, Psych: Alert, oriented, appropriate affect Assessment/Plan: Patient is a 66-year-old male status post left total hip arthroplasty Hypertension -Resume amlodipine Benzapril -Follow blood pressures Dyslipidemia -Statin GERD -PPI Hard of hearing -Status post cochlear implant DISH - restart Celebrex when okay with ortho Thank you for allowing us to participate in the care of this pleasant patient. Do not hesitate to contact us with questions. Someone can be reached from the [facility] hospitalist group all hours of the day at [phone] or via [employer]. Past Medical History Past Medical History: GERD/Reflux, Hearing Disorder / Deafness, Hyperlipidemia, Hypertension, Musculoskeletal Disorder, Prostate Disorder Additional Past Medical History / Comment(s): Elev PSA, being watched. Forestier's disease (thickening of ligaments, tendons, joints)., sees chiropractor., cochlear implant right ear, deaf left ear., hearing aid. History of Any Multi-Drug Resistant Organisms: None Reported Past Surgical History: Ear Surgery, Joint Replacement Additional Past Surgical History / Comment(s): Colonoscopy. Rt ear cochlear implant, total left hip. Past Anesthesia/Blood Transfusion Reactions: No Reported Reaction Past Psychological History: No Psychological Hx Reported Smoking Status: Never smoker Past Alcohol Use History: Occasional Past Drug Use History: None Reported - Past Family History Sister(s) Family Medical History: Cancer Medications and Allergies Home Medications Medication Instructions Recorded Confirmed Type Celecoxib [CeleBREX] 200 mg PO BID 05/08/19 05/09/22 History Esomeprazole Magnesium [NexIUM] 40 mg PO DAILY 05/08/19 05/09/22 History amLODIPine BESYLATE/BENAZEPRIL 1 cap PO DAILY 05/08/19 05/09/22 History [amLODIPine BESYLATE/BENAZEPRIL 10-20 MG] tiZANidine [Zanaflex] 4 mg PO HS PRN 05/08/19 05/09/22 History Rosuvastatin [Crestor] 20 mg PO HS 04/01/21 05/09/22 History Acetaminophen [Tylenol Arthritis] 650 mg PO DIRECTED PRN 05/04/22 05/09/22 History Cholecalciferol [Vitamin D3 (25 100 mcg PO DAILY 05/04/22 05/09/22 History Mcg = 1000 Iu)] Multicollagen 1 dose PO DAILY 05/04/22 05/09/22 History Vitamin B Complex 1 each PO DAILY 05/04/22 05/09/22 History metHOTREXate sodium [Methotrexate] 15 mg PO Q7D 05/04/22 05/09/22 History Allergies Allergy/AdvReac Type Severity Reaction Status Date / Time No Known Allergies Allergy Verified 05/09/22 06:16 Physical Exam Osteopathic Statement: *. No significant issues noted on an osteopathic structural exam other than those noted in the History and Physical/Consult. Vitals: Vital Signs Temp Pulse Resp BP BP Pulse Ox 05/09/22 14:00 97.6 F 83 20 124/81 94 L 05/09/22 13:35 83 16 121/72 94 L 05/09/22 13:05 90 16 134/78 93 L 05/09/22 12:41 88 16 128/79 96 05/09/22 12:13 84 16 128/78 96 05/09/22 11:58 80 16 122/73 96 05/09/22 11:10 78 16 118/75 95 05/09/22 10:55 71 17 109/69 95 05/09/22 10:40 75 14 116/67 95 05/09/22 10:25 75 14 113/65 93 L 05/09/22 10:11 82 15 115/66 94 L 05/09/22 09:56 71 15 114/67 96 05/09/22 09:41 97.1 F L 73 12 113/67 95 05/09/22 07:07 69 18 131/74 97 05/09/22 06:31 98.4 F 64 18 160/84 96 Intake and Output 05/09/22 05/09/22 05/09/22 06:59 14:59 22:59 Intake Total 300 1650 Output Total 300 Balance 300 1350 Intake: IV 300 1650 Output: Urine 100 Estimated Blood Loss 200 Other: Weight 93.6 kg 93.6 kg
[2022-05-09] MEDS ORDERED: SENNOSIDES-DOCUSATE SODIUM 1 EACH TAB PO SCH (21:00)
[2022-05-10] MEDS: HYDROcodone/APAP 7.5-325MG 1 EACH TAB PO PRN ×2 (02:16→09:45)
[2022-05-10] MEDS: LACTATED RINGERS 1,000 ML IV SCH (03:25)
[2022-05-10 04:09] VITALS: RESP 16
[2022-05-10] MEDS: HYDROmorphone 0.5 MG/0.5 ML SYRINGE IVP PRN (06:04)
--- NOTE | 2022-05-10 07:04 | P.ANPRN ---
Procedure Note - Anesthesia - Nerve Block Performed Right Erector Spinae Single Time Out Performed: Yes Date of Procedure: 05/09/22 Procedure Start Time: 07:00 Procedure Stop Time: 07:04 Location of Patient: PreOp Indication: Acute Post-Operative Pain, Requested by Surgeon Sedation Type: Sedate with meaningful contact maintained Preparation: Sterile Prep Position: Prone Needle Gauge: 21 Ultrasound used to visualize needle placement: Yes Ultrasound used to observe medication spread: Yes Blood Aspirated: No Pain Paresthesia on Injection Noted: No Resistance on Injection: Normal Image Stored and Saved: Yes Events: Uneventful and Well Tolerated (Ropivacaine 0.5% 15 mL plus normal saline 10 mL plus dexamethasone 4 mg plus fentanyl 25 mics)
[2022-05-10 07:44] VITALS: BP 146/76; PULSE 70; TEMP 97.9
[2022-05-10] MEDS ORDERED: PANTOPRAZOLE 40 MG TABLET PO SCH (09:00)
[2022-05-10] MEDS ORDERED: lisinopriL 20 MG TAB PO SCH (09:00)
[2022-05-10] MEDS ORDERED: amLODIPine 10 MG TAB PO SCH (09:00)
[2022-05-10] MEDS ORDERED: ONDANSETRON 4 MG/2 ML VIAL IVP PRN (09:00)
[2022-05-10] MEDS: RIVAROXABAN 10 MG TAB PO SCH ×2 (09:42→09:43)
[2022-05-10 10:22] LABS: Basophils # (A) 0.02 X 10*3/uL (0.00-0.10); Basophils % (A) 0.2 %; Eosinophils # (A) 0.01 X 10*3/uL (0.04-0.35); Eosinophils % (A) 0.1 %; HGB 11.4 g/dL (13.0-17.0); Immature Grans, Automated 0.7 %; Lymphocytes # (A) 1.46 X 10*3/uL (0.90-5.00); Lymphocytes % (A) 12.2 %; MCH 30.2 pg (27.0-32.0); MCHC 33.5 g/dL (32.0-37.0); MCV 90.2 fL (80.0-97.0); Mean Platelet Volume 10.7 fL (9.5-12.2); Monocytes # (A) 1.19 X 10*3/uL (0.20-1.00); Monocytes % (A) 9.9 %; NRBC Per 100 WBC 0 /100 WBCS (0.0-0.0); Neutrophils % (A) 76.9 %; Platelet Count 252 X 10*3/uL (140-440); RBC 3.77 X 10*6/uL (4.40-5.60); RDW 12.7 % (11.5-14.5); WBC 11.96 X 10*3/uL (4.50-10.00)
--- NOTE | 2022-05-10 11:42 | P.DS ---
Providers Date of admission: 05/10/22 07:35 Expected date of discharge: 05/10/22 Attending physician: Juan Garber Consults: 05/09/22 09:35 Consult Physician Routine Consulting Provider: Cordelia Wallace Consult Reason/Comments: Medical Management s/p right total hip arthroplasty Do you want consulting provider notified?: Yes Primary care physician: Nabila Burrows Hospital Course: Date of admission: 05/09/2022 Date of discharge: 05/10/2022 Admission diagnosis: Right hip osteoarthritis. Discharge diagnosis: Same Attending physician: Dr. Garber Surgical procedures: Right total hip arthroplasty Brief history: Patient is a 66-year-old male with a history of progressive primary right hip osteoarthritis. At this point patient has failed conservative treatment measures and has opted to proceed with a elective right total hip arthroplasty. Hospital course: Details of patient's surgery can be found in operative report. Patient tolerated the procedure well and was subsequently transported to orthopedic floor. Patient's orthopeidc and medical care was provided daily. Patient had daily laboratory tests performed for evaluation of overall blood counts. Patient had daily physical therapy to include strengthening range of motion as well as education with walker ambulation. Patient was treated with Xarelto for their postoperative DVT prophylaxis during their inpatient stay. Patient was noted to have a relatively uneventful postoperative course. Patient reported satisfactory pain control with oral pain medications by postoperative day 1. Patient showed satisfactory progress with physical therapy. Patient moved steadily through the program and had no difficulty meeting the goals by postoperative day 1. Given patient's otherwise satisfactory course and having met physical therapy goals, plan is to discharge patient home with health services on postoperative day 1. Discharge condition/disposition: Patient will be discharged home with health services in stable condition. Discharge medications: Instructions are given on resumption of patient's normal daily medications per primary care recommendation, in addition patient will be prescribed [place] 7.5 mg/325 mg; Colace; Zofran; Eliquis 2.5 mg BID x 2 weeks. Discharge instructions: 1. Wound care and infection precautions, keep incision dry and covered while showering, no lotions, creams, moisturizers. No soaking, tubs, pools, hottubs. Do not scrub over the incision. 2. Weight-bear as tolerated with walker / cane until follow-up. 3. Ice and elevate when necessary. Do not exceed 20 minutes per hour with ice pack. 4. Utilize compression sleeve until seen at first follow up appointment. 5. Visiting nursing care. 6. Home physical therapy 7. Pain meds and anticoagulants per prescription. 8. Pain medication has potential to cause constipation. Increase oral fluid and fiber intake. Contact primary care provider if you have not had a bowel movement within 48 hours after discharge 9. No anti-inflammatory medication until discussed at first post operative visit, this including Motrin, Aleve, Mobic, Diclofenac 10. Follow up in office at 2 weeks postop with Arvin Torrez PA-C / Neftaly Christiansen PA-C 11. Follow up with your primary care doctor 7-10 days after discharge. 12. Contact [facility] with any questions, . Assessment: Right hip osteoarthritis Procedures: Right total hip arthroplasty Patient Condition at Discharge: Good Plan - Discharge Summary Discharge Rx Participant: Yes New Discharge Prescriptions: New HYDROcodone/APAP 7.5-325MG [[place] 7.5] 1 each PO Q6HR PRN #28 tab PRN Reason: Pain Ondansetron [Zofran] 4 mg PO Q8HR PRN #6 tab PRN Reason: Nausea Docusate [Colace] 100 mg PO DAILY #30 capsule Apixaban [Eliquis] 2.5 mg PO BID #60 tab Continue amLODIPine BESYLATE/BENAZEPRIL [amLODIPine BESYLATE/BENAZEPRIL 10-20 MG] 1 cap PO DAILY Esomeprazole Magnesium [NexIUM] 40 mg PO DAILY Rosuvastatin [Crestor] 20 mg PO HS Cholecalciferol [Vitamin D3 (25 Mcg = 1000 Iu)] 100 mcg PO DAILY Vitamin B Complex 1 each PO DAILY Multicollagen 1 dose PO DAILY No Action tiZANidine [Zanaflex] 4 mg PO HS PRN PRN Reason: Pain Celecoxib [CeleBREX] 200 mg PO BID metHOTREXate sodium [Methotrexate] 15 mg PO Q7D Acetaminophen [Tylenol Arthritis] 650 mg PO DIRECTED PRN PRN Reason: Pain Discharge Medication List Celecoxib [CeleBREX] 200 mg PO BID 05/08/19 [History] Esomeprazole Magnesium [NexIUM] 40 mg PO DAILY 05/08/19 [History] amLODIPine BESYLATE/BENAZEPRIL [amLODIPine BESYLATE/BENAZEPRIL 10-20 MG] 1 cap PO DAILY 05/08/19 [History] tiZANidine [Zanaflex] 4 mg PO HS PRN 05/08/19 [History] Rosuvastatin [Crestor] 20 mg PO HS 04/01/21 [History] Acetaminophen [Tylenol Arthritis] 650 mg PO DIRECTED PRN 05/04/22 [History] Cholecalciferol [Vitamin D3 (25 Mcg = 1000 Iu)] 100 mcg PO DAILY 05/04/22 [History] Multicollagen 1 dose PO DAILY 05/04/22 [History] Vitamin B Complex 1 each PO DAILY 05/04/22 [History] metHOTREXate sodium [Methotrexate] 15 mg PO Q7D 05/04/22 [History] Apixaban [Eliquis] 2.5 mg PO BID #60 tab 05/10/22 [Rx] Docusate [Colace] 100 mg PO DAILY #30 capsule 05/10/22 [Rx] HYDROcodone/APAP 7.5-325MG [[place] 7.5] 1 each PO Q6HR PRN #28 tab 05/10/22 [Rx] Ondansetron [Zofran] 4 mg PO Q8HR PRN #6 tab 05/10/22 [Rx] Follow up Appointment(s)/Referral(s): Nabila Burrows MD [Primary Care Provider] - 1 Week Neftaly Christiansen PAC [PHYSICIAN BOOK REVIEWER] - 2 Weeks [facility], [NON-STAFF] - 1-2 Days ([facility] will call you to schedule your in home physical therapy and nursing visits.) Patient Instructions/Handouts: Total Hip Replacement (DC) Activity/Diet/Wound Care/Special Instructions: Orthopedic Discharge Instructions: 1. Wound care and infection precautions, keep incision dry and covered while showering, no lotions, creams, moisturizers. No soaking, pools, hot tubs. Do not scrub over incision. 2. Weight-bear as tolerated with walker / cane until follow-up. 3. Ice and elevate when necessary. Do not exceed 20 minutes per hour with ice pack. 4. Utilize compression sleeve until seen at first follow up appointment. 5. Pain meds and anticoagulants per prescription. 6. Pain medication has potential to cause constipation. Increase oral fluid and fiber intake. Contact primary care provider if you have not had a bowel movement within 48 hours after discharge. 7. No anti-inflammatory medication until discussed at first post operative visit, this including Motrin, Aleve, Mobic, Diclofenac 8. Follow up in office at 2 weeks postop with Arvin Torrez PA-C / Neftaly Christiansen PA-C 9. Follow up with your primary care doctor 7-10 days after discharge. 10. Contact [facility] with any questions, . Keep incision clean, dry, intact. While showering, cover fusion tape with Saran wrap. keep fusion tape on until follow-up appointment in office in 2 weeks Discharge Disposition: HOME WITH HOME HEALTH SERVICES
--- NOTE | 2022-05-10 11:46 | P.PN ---
Subjective Progress Note Date: 05/10/22 Principal diagnosis: Right hip osteoarthritis Patient was seen at bedside this morning resting comfortably sitting up in chair. Patient says he did get up with physical therapy earlier this morning and walked around the room and in the hallway and up and down steps. Patient says he has urinated several times since surgery yesterday. Patient says he has been passing gas, however, patient says he has not had a bowel movement. Patient says he is having smokeless pain however is controlled pain medication. Patient says he does have a walker for home. Patient denies chest pain, fever, shortness breath, nausea, vomiting, change in vision, loss of bowel/bladder control. Objective - Vital Signs Vital signs: Vital Signs Temp 97.9 F 05/10/22 07:43 Pulse 70 05/10/22 09:49 Resp 16 05/10/22 09:49 BP 146/76 05/10/22 07:43 Pulse Ox 96 05/10/22 07:43 FiO2 Intake & Output 05/09/22 05/10/22 05/10/22 18:59 06:59 18:59 Intake Total 1650 Output Total 300 Balance 1350 Weight 93.6 kg Intake: IV 1650 Output: Urine 100 Estimated Blood Loss 200 Other: Voiding Method Urinal Urinal # Voids 2 - Exam Right hip: Incision is clean, dry, and intact. The exofin fusion tape is in good condition. There is minimal soft tissue swelling and ecchymosis surrounding the medial and lateral aspects of the incision. Calf is soft, no tenderness with palpation. Plantar flexion, dorsiflexion, EHL, FHL are intact. Sensory exam to light touch throughout the extremity is intact, dorsal pedis pulses 2+. - Labs CBC & Chem 7: 05/10/22 06:14 Labs: Abnormal Lab Results - Last 24 Hours (Table) 05/10/22 Range/Units 06:14 WBC 11.96 H (4.50-10.00) X 10*3/uL RBC 3.77 L (4.40-5.60) X 10*6/uL Hgb 11.4 L (13.0-17.0) g/dL Hct 34.0 L (39.6-50.0) % Immature Gran # 0.08 H (0.00-0.04) X 10*3/uL Neutrophils # 9.20 H (1.80-7.70) X 10*3/uL Monocytes # 1.19 H (0.20-1.00) X 10*3/uL Eosinophils # 0.01 L (0.04-0.35) X 10*3/uL Assessment and Plan Assessment: 1. Right hip osteoarthritis - Postop day #1 status post right total hip arthroplasty Plan: 1. Right hip osteoarthritis - right total hip arthroplasty performed yesterday, 05/09/2022. Patient stable at bedside this morning. Patient does have a walker for home. Discharge home today with health services. 2. Appreciate medical management 3. Pain management - [place] 4. DVT prophylaxis - Xarelto in hospital. Going home with Eliquis 2.5 mg BID x 2 weeks 5. GI prophylaxis - senna in hospital. Colace once home 6. PT/OT - weightbearing as tolerated with walker 7. Encourage incentive spirometer use 8. Discharge planning - home with health services today. Time with Patient: Less than 30
--- NOTE | 2022-05-10 13:50 | P.PN ---
Subjective Progress Note Date: 05/10/22 (Delayed charting seen at 1020) Patient is a 66-year-old male with GERD, hypertension, dyslipidemia, and poor hearing with a cochlear implant who presented for elective left total hip arthroplasty. Patient seen and examined at bedside. After working in therapy today he did have an episode of getting hot, diaphoretic, and feeling nauseated. Reported with breast and receiving Zofran. He has been up and walking some phlegm and it has not recurred. He denied any chest pain associated with the episode. His hip pain is currently well controlled. He does complain of a feeling of tightness in his right calf. General: nontoxic, no distress, appears at stated age Derm: warm, dry Head: atraumatic, normocephalic, symmetric Eyes: EOMI, no lid lag, anicteric sclera Mouth: no lip lesion, mucus membranes moist Cardiovascular: S1S2 reg, no murmur, positive posterior tibial pulse bilateral, Lungs: CTA bilateral, no rhonchi, no rales , no accessory muscle use Abdominal: soft, nontender to palpation, no guarding, no appreciable organomegaly Ext: no gross muscle atrophy, no edema, no contractures, negative Homans, negative Panchito Neuro: CN II-XI grossly intact, no focal neuro deficits Psych: Alert, oriented, appropriate affect Assessment/Plan: Patient is a 66-year-old male status post left total hip arthroplasty Hypertension - amlodipine/ Benzapril -Follow blood pressures Dyslipidemia -Statin GERD -PPI Hard of hearing -Status post cochlear implant DISH - restart Celebrex when okay with ortho Patient medically optimized for discharge at the discretion of orthopedic surg marcus. Home medication reconciliation addressed. Objective - Vital Signs Vital signs: Vital Signs Temp 97.9 F 05/10/22 07:43 Pulse 70 05/10/22 09:49 Resp 16 05/10/22 09:49 BP 146/76 05/10/22 07:43 Pulse Ox 96 05/10/22 07:43 FiO2 Intake & Output 05/09/22 05/10/22 05/10/22 18:59 06:59 18:59 Intake Total 1650 Output Total 300 Balance 1350 Weight 93.6 kg Intake: IV 1650 Output: Urine 100 Estimated Blood Loss 200 Other: Voiding Method Urinal Urinal # Voids 2 - Labs CBC & Chem 7: 05/10/22 06:14 Labs: Abnormal Lab Results - Last 24 Hours (Table) 05/10/22 Range/Units 06:14 WBC 11.96 H (4.50-10.00) X 10*3/uL RBC 3.77 L (4.40-5.60) X 10*6/uL Hgb 11.4 L (13.0-17.0) g/dL Hct 34.0 L (39.6-50.0) % Immature Gran # 0.08 H (0.00-0.04) X 10*3/uL Neutrophils # 9.20 H (1.80-7.70) X 10*3/uL Monocytes # 1.19 H (0.20-1.00) X 10*3/uL Eosinophils # 0.01 L (0.04-0.35) X 10*3/uL
[2022-05-10] MEDS ORDERED: ATORVASTATIN 40 MG TAB PO SCH (21:00)
[2022-05-10] MEDS ORDERED: tiZANidine 4 MG TAB PO PRN (21:00)
== END 2022-05-10 14:33 | disposition home health service (06) ==
LOC: OR 06:00 → 4SSUR 09:30 → OR 05-10 07:35 → 4SSUR 05-10 07:35
PROVIDERS: ADMIT Orthopaedic Surgery; ATTEND Orthopaedic Surgery
DX: M16.11 Unilateral primary osteoarthritis, right hip (principal); G89.18 Other acute postprocedural pain; I10 Essential (primary) hypertension; K21.9 Gastro-esophageal reflux disease without esophagitis; E78.5 Hyperlipidemia, unspecified; H91.92 Unspecified hearing loss, left ear; M48.10 Ankylosing hyperostosis [Forestier], site unspecified; M35.3 Polymyalgia rheumatica; Z79.1 Long term (current) use of non-steroidal anti-inflammatories (NSAID); Z96.642 Presence of left artificial hip joint; Z80.8 Family history of malignant neoplasm of other organs or systems
CPT/HCPCS: 96374; 97161; 97535; 97166; 64461; 86900; 86901; 85025; 86850; 88300; 73501; 27130; G0378; C1776; J2250; J1200; J1100; J0690 ×2; J2405 ×2; J3010; J2795; J2370; J2704; J1170 ×2

== ENCOUNTER → 2023-03-09 | Outpatient (CLI) | payer MEDICARE, OTHER ==
[2023-03-09 21:03] LABS: Calcium 9.4 mg/dL (8.7-10.3)
== END | disposition home or self-care (01) ==
LOC: LABWHC1 12:37
PROVIDERS: ATTEND Dentist Oral and Maxillofacial Surgery
DX: Z00.00 Encounter for general adult medical examination without abnormal findings (principal)
CPT/HCPCS: 36415; 82310; 83970; 84075

== ENCOUNTER 2024-08-15 12:21 | Day surgery (SDC) | payer MEDICARE, OTHER ==
[2024-08-14 11:20] VITALS: BMI 30.1
[2024-08-15 13:26] VITALS: TEMP 97.7
[2024-08-15] MEDS: IV FLUID CONTINUATION 1,000 ML IV ONE (13:29)
[2024-08-15] MEDS: LACTATED RINGERS 1,000 ML IV SCH (13:29)
[2024-08-15] MEDS ORDERED: PROPOFOL 10 MG/ML 20 ML VIAL IV ONE (13:58)
--- NOTE | 2024-08-15 14:12 | P.PCN ---
Date of Procedure: 08/15/24 Procedure(s) Performed: BRIEF HISTORY: Patient is a 68-year-old pleasant white male scheduled for an elective colonoscopy as a part of screening for history of colon polyps with last colonoscopy was 5 years ago and was noted to have a tubular adenoma. PROCEDURE PERFORMED: Colonoscopy. PREOPERATIVE DIAGNOSIS: Screening for history of colon polyps.. IV sedation per Anesthesia. PROCEDURE: After informed consent was obtained, the patient, was brought into the endoscopy unit. IV sedation was administered by Anesthesia under continuous monitoring. Digital rectal examination was normal. Initially the Olympus CF-160 flexible video colonoscope was then inserted in the rectum, gradually advanced into the cecum without any difficulty. Careful examination was performed as the scope was gradually being withdrawn. Ileocecal valve and the appendiceal orifice were visualized and appeared normal. Prep was excellent. Mucosa of the cecum, ascending colon, transverse colon, descending colon, sigmoid colon, and rectum appeared normal. Scattered sigmoid diverticulosis. Retroflexion was performed in the rectum and grade 2 internal hemorrhoids were seen. The patient tolerated the procedure well. IMPRESSION: Normal-appearing colon from rectum to cecum with no episode colorectal neoplasia Grade 2 internal hemorrhoids Scattered sigmoid diverticulosis. RECOMMENDATIONS: Findings of this examination were discussed with the patient as well as her family. She was advised to have repeat screening colonoscopy in 10 years.
[2024-08-15 14:31] VITALS: BP 129/72; PULSE 71; RESP 16
== END 2024-08-15 14:46 | disposition home or self-care (01) ==
LOC: ORWHC2ENDO 12:21
PROVIDERS: ATTEND Internal Medicine Gastroenterology
DX: Z12.11 Encounter for screening for malignant neoplasm of colon (principal); K57.30 Diverticulosis of large intestine without perforation or abscess without bleeding; K21.9 Gastro-esophageal reflux disease without esophagitis; K64.1 Second degree hemorrhoids; I10 Essential (primary) hypertension; E78.5 Hyperlipidemia, unspecified; N40.0 Benign prostatic hyperplasia without lower urinary tract symptoms; Z90.89 Acquired absence of other organs; Z86.0100 Personal history of colon polyps, unspecified; Z89.511 Acquired absence of right leg below knee; Z89.512 Acquired absence of left leg below knee; Z79.899 Other long term (current) drug therapy
CPT/HCPCS: J2704; G0121